=== PATIENT | male | born 1985 | race African-American/Black ===

== ENCOUNTER 2019-01-05 13:31 | Emergency (ER) | payer SELFPAY ==
[2019-01-05] MEDS ORDERED: Sulfameth/Trimethoprim DS 800-160mg TAB ONE (14:22)
== END 2019-01-05 14:45 | disposition home or self-care (01) ==
LOC: BURERS 13:31
DX: L02.412 Cutaneous abscess of left axilla (principal); F17.220 Nicotine dependence, chewing tobacco, uncomplicated
CPT/HCPCS: 10060; 87070; 87077; 87186; 87205

== ENCOUNTER 2019-10-24 12:42 | Emergency (ER) | payer SELFPAY | END 2019-10-24 13:22 | disposition home or self-care (01) | LOC: BURERS 12:42 | DX: H10.9 Unspecified conjunctivitis (principal); F17.220 Nicotine dependence, chewing tobacco, uncomplicated | CPT/HCPCS: 99283 ==